=== PATIENT | male | born 1985 | race Caucasian/White ===

== ENCOUNTER 2018-11-16 18:42 | Emergency (ER) | payer MEDICAID, OTHER ==
[~2018-11-16] VITALS: Ht 180.3 cm; Wt 108.9 kg
[2018-11-16 18:55] VITALS: BP 148/89
--- NOTE | 2018-11-16 18:55 | NUR ---
PT ANGIE TO ER BED 10. IN CUSTODY C/O HEARING VOICES, SUICIDAL W/ NO ACTIVE PLAN AT THIS TIME. ALSO C/O DIZZINESS. ADMITS TO USING METH. GOWN AND PLACED ON MONITOR. VSS. AWAITING MD KAYE.
--- NOTE | 2018-11-16 19:02 | NUR ---
DR TYSON AT BEDSIDE FOR EVAL.
--- NOTE | 2018-11-16 19:11 | NUR ---
REPORT TO SD ANDUJAR FOR LIDA.
--- NOTE | 2018-11-16 19:12 | NUR ---
TECH AT BEDSIDE FOR EKG
--- NOTE | 2018-11-16 19:13 | NUR ---
PT REFUSING EKG. MD AWARE.
--- NOTE | 2018-11-16 19:26 | NUR ---
PT REFUSING LAB DRAWS. PT REFUSING IV MEDICATION. MADE AWARE.
[2018-11-16] MEDS ORDERED: IV NS 0.9% 1,000 ML BAG IV ONE (19:30)
--- NOTE | 2018-11-16 19:32 | NUR ---
Patient discharged in stable condition. Written and verbal after care instructions given. Patient verbalizes understanding of instruction.
== END 2018-11-16 19:58 | disposition home or self-care (01) ==
LOC: ER 18:50
DX: Z02.89 Encounter for other administrative examinations (principal); F31.9 Bipolar disorder, unspecified; F12.90 Cannabis use, unspecified, uncomplicated
CPT/HCPCS: 99283; A4606; Z7610